=== PATIENT | female | born 1960 | race Caucasian/White ===

== ENCOUNTER 2017-02-03 09:00 | Outpatient (CLI) | payer OTHER ==
[2015-11-09 14:26] VITALS: BMI 24.0
[~2017-02-03 09:00] MED LIST: BAYER CHEWABLE81 MG PO; CITRACAL + D E1 EACH PO; FLAGYL500 MG PO; PROMETRIUM100 MG PO; VITAMIN B-12500 MC1 PO; VITAMIN E400 UNI2 PO
== END 2017-02-03 23:59 | disposition home or self-care (01) ==
LOC: D.MAMMO 09:00
DX: Z12.31 Encounter for screening mammogram for malignant neoplasm of breast (principal)

== ENCOUNTER → 2018-11-12 18:33 | Outpatient (CLI) | payer OTHER ==
[2015-11-09 14:26] VITALS: BMI 24.0
== END | disposition home or self-care (01) ==
LOC: D.LABREF 18:33
PROVIDERS: ATTEND Urology
DX: Z00.01 Encounter for general adult medical examination with abnormal findings (principal)

== ENCOUNTER 2019-11-07 18:45 | Outpatient (CLI) | payer OTHER ==
[2015-11-09 14:26] VITALS: BMI 24.0
== END 2019-11-07 23:59 | disposition home or self-care (01) ==
LOC: D.MAMMO 18:45
PROVIDERS: ATTEND Family Medicine
DX: Z12.31 Encounter for screening mammogram for malignant neoplasm of breast (principal)